=== PATIENT | male | born 1985 | race Caucasian/White ===

== ENCOUNTER 2019-05-28 17:19 | Emergency (ER) | payer MEDICAID ==
[~2019-05-28] VITALS: Ht 182.9 cm; Wt 79.8 kg
[2019-05-28] MEDS ORDERED: IBUPROFEN 600 MG TABLET PO ONE ×2 (18:14→18:30)
[2019-05-28] MEDS ORDERED: ACETAMINOPHEN 325 MG TABLET ONE (18:14)
--- NOTE | 2019-05-28 18:17 | NUR ---
fever x 2 days; to ER for evaluation and treatment
--- NOTE | 2019-05-28 18:17 | NUR ---
FLU SWAB COLLECTED AND SENT TO LAB
[2019-05-28] MEDS ORDERED: ACETAMINOPHEN 325 MG TABLET PO ONE (18:30)
--- NOTE | 2019-05-28 18:56 | NUR ---
Patient discharged to home in stable condition. Written and verbal after care instructions given. Patient verbalizes understanding of instruction.
[2019-05-28 18:57] VITALS: BP 120/67
== END 2019-05-28 18:58 | disposition home or self-care (01) ==
LOC: ER 17:22
DX: J06.9 Acute upper respiratory infection, unspecified (principal)
CPT/HCPCS: 71045-TC

== ENCOUNTER 2021-07-29 08:40 | Emergency (ER) | payer MEDICAID ==
[~2021-07-29] VITALS: Ht 177.8 cm; Wt 87.1 kg
[2021-07-29 08:40] VITALS: BP 116/65
[2021-07-29] MEDS ORDERED: KETOROLAC TROMETHAMINE 15 MG/ML VIAL ONE (08:57)
[2021-07-29] MEDS ORDERED: KETOROLAC TROMETHAMINE INJ 30 MG/ML VIAL IM ONE (09:00)
[2021-07-29] MEDS ORDERED: IBUP-1955 PO (09:05)
== END 2021-07-29 09:12 | disposition home or self-care (01) ==
LOC: ER 08:44
DX: U07.1 COVID-19 (principal); J06.9 Acute upper respiratory infection, unspecified
CPT/HCPCS: 96372; 99283; C9803; J1885; U0003